=== PATIENT | female | born 1975 | race Caucasian/White ===

== ENCOUNTER 2025-11-06 11:43 | Emergency (ER) | payer MEDICARE, MEDICAID ==
[~2025-11-06] VITALS: Ht 165.1 cm; Wt 46.0 kg
[2025-11-06 11:44] VITALS: O2SAT 95
[2025-11-06 13:19] LABS: BASOPHILS % 0.1 % (0.0-2.0); EOSINOPHILS % 1.6 % (0.0-5.0); HEMATOCRIT. 36.9 % (36.0-48.0); HEMOGLOBIN. 12.1 g/dL (12.0-16.0); LYMPHOCYTES % 19.2 % (20.0-50.0); MEAN PLATELET VOLUME 6.9 fl (7.4-10.4); MONOCYTES % 5.3 % (2.0-8.0); NEUTROPHILS % 73.8 % (40.0-76.0); PLATELET 225 x1000/uL (130-400); RED BLOOD CELL COUNT 4.08 mill/uL (4.2-5.4); RED CELL DISTRIBUTION WIDTH 13.2 % (11.6-14.6)
[2025-11-06 13:33] LABS: CREATININE 0.7 mg/dL (0.6-1.0); UREA NITROGEN BLOOD 17 mg/dL (9-23)
[2025-11-06 13:34] LABS: ASPARTATE AMINOTRANSFERASE 15 IU/L (<34); PROTEIN TOTAL 7.2 g/dL (6.0-8.3)
[2025-11-06 13:35] LABS: BILIRUBIN DIRECT < 0.1 mg/dL (<=3.0); BILIRUBIN TOTAL 0.3 mg/dL (0.1-1.0)
[2025-11-06 13:54] LABS: HCG SCREEN NEGATIVE
[2025-11-06] MEDS: LORAZEPAM 2MG/ML UD SYRINGE ONE (15:24)
[2025-11-06 22:30] VITALS: BP 118/73; PULSE 81; RESP 20; TEMP 36.7; O2SAT 97
== END 2025-11-06 22:46 | disposition home or self-care (01) ==
LOC: ER 11:43 → 6EST 14:32 → UNDOADMIN 14:32 → EDBEDREQ 14:35 → EDBEDREQTM 14:35 → ENRESERV 14:42 → ER 22:46
DX: N93.9 Abnormal uterine and vaginal bleeding, unspecified (principal); F41.9 Anxiety disorder, unspecified; F31.9 Bipolar disorder, unspecified; F20.9 Schizophrenia, unspecified; E03.9 Hypothyroidism, unspecified; G80.9 Cerebral palsy, unspecified; N89.8 Other specified noninflammatory disorders of vagina; Z79.899 Other long term (current) drug therapy
CPT/HCPCS: 99285; 76856; 80076; 80048; 84703; 84702; 83690; 83735; 85025; 86850; 86900; 86901; 36415; J2060; A6449